=== PATIENT | female | born 1965 | race Caucasian/White ===

== ENCOUNTER 2019-04-24 13:10 | Emergency (ER) | payer OTHER ==
[2019-04-24 13:19] VITALS: BP 107/82
--- NOTE | 2019-04-24 13:37 | UC ---
General HPI - HPI Summary HPI Summary: Patient's 54-year-old female. Patient states she was taking her Xanax medication when she felt she choked on the pill. Patient states she started to Owens swallow. Patient states she has a burning sensation and felt like she was choking. Patient without drooling. No chest pain. No nausea vomiting. Patient has not tried to eat or drink anything. Patient states she got very scared to go herself right here. This occurred approximately 30 minutes prior to arrival. Patient's medications reviewed this visit. - History of Current Complaint Chief Complaint: UCGeneralIllness Stated Complaint: CAN'T SWALLOW Time Seen by Provider: 04/24/19 13:31 Hx Obtained From: Patient Onset/Duration: Sudden Onset Onset Severity: Mild Current Severity: None Pain Intensity: 0 - Allergy/Home Medications Allergies/Adverse Reactions: Allergies Allergy/AdvReac Type Severity Reaction Status Date / Time No Known Allergies Allergy Verified 04/24/19 13:15 Home Medications: Home Medications Cholecalciferol TAB* [Vitamin D TAB*] 1,000 unit PO DAILY 04/24/19 [History Confirmed 04/24/19] FLUoxetine CAP* [PROzac CAP*] 20 mg PO BID 04/24/19 [History Confirmed 04/24/19] clonazePAM TAB(*) [KlonoPIN TAB(*)] 1 mg PO BEDTIME PRN 04/24/19 [History Confirmed 04/24/19] PMH/Surg Hx/FS Hx/Imm Hx Previously Healthy: Yes Psychological History: Anxiety - Surgical History Surgical History: Yes Surgery Procedure, Year, and Place: myomectomy - Family History Known Family History: Positive: Non-Contributory - Social History Alcohol Use: None Substance Use Type: None Smoking Status (MU): Never Smoked Tobacco Review of Systems All Other Systems Reviewed And Are Negative: Yes - 1. Physical Exam - Summary Physical Exam Summary: Vital Signs Reviewed: Yes A+Ox3, anxious, speaking full easy sentences no increased WOB Eyes: Conjunctiva Clear, JAMARCUS. EOM intact and full ENT: Hearing grossly normal TM x 2 clear, mmoist, uvula midline, no exudate, no erythema Neck: Positive: Supple Respiratory: Positive: No respiratory distress, No accessory muscle use + CTA throughout no w/r, no coughing Cardiovascular: RRR nl s1, s2 no m/r CBT <2 sec abd soft + BS nt/nd no guarding, no distension Musculoskeletal Exam: SIMPSON x 4 without difficulty Strength Intact, ROM Intact Neurological: Positive: Alert, + sensation throughout Psychological: Positive: Normal Response To examiner Skin: Positive: no rash, no ecchymosis Triage Information Reviewed: Yes Vital Signs: Initial Vital Signs Temp 97.9 F 04/24/19 13:17 Pulse 97 04/24/19 13:17 Resp 20 04/24/19 13:17 BP 107/82 04/24/19 13:17 Pulse Ox 99 04/24/19 13:17 Diagnostics - Radiology No standard instances Radiology Interpretation Completed By: Radiologist - Patient Name: MARIBEL SINCLAIR Medical Record#: [id number] Ordering Physician: Charley Alexandre MD Acct.#: [id number] : 1965 Age: 53 Sex: F Location: [facility] Exam Date: 04/24/19 1347 ADM Status: REG ER Order Information: CHEST PA & LAT 2 VWS Accession Number: [id number] CPT: 90405 INDICATION: Choked on a pill, shortness of breath. COMPARISON: There are no prior studies available for comparison. TECHNIQUE: Dual-energy PA and lateral views of the chest were obtained. FINDINGS: The heart is within normal limits in size. Mediastinal and hilar contours appear within normal limits. The lungs are clear. No pleural effusion is seen. IMPRESSION: NO EVIDENCE FOR ACTIVE CARDIOPULMONARY DISEASE. <Electronically signed by John Khanna MD in OV> 04/24/19 135 Dictated By: John Khanna MD Dictated Date/ Time: 04/24/19 135 Transcribed Date/Time: 04/24/191357 Copy to: CC:Armando Pool ANP; Charley Alexandre MD Imaging - [facility] Imaging - [facility] Imaging [facility] [address] [address] ph ([phone]) ph ([phone]) ([phone]) This report is only to be considered final once signed by the Provider(s) as displayed in the "<Electronically Signed by >" field (s). Absence of a signature indicates the report is in a draft status and still needs to be finalized. In the event this document was created by someone other than the signing Provider, the individual initiating the document will be listed in the "Entered by:" or "Dictated by:" rios. 1 of 1 Re-Evaluation - Re-Evaluation First Eval Change: Improved - Review chest x-ray with patient. Patient eating and drinking without difficulty. No coughing. Reviewed vital signs. Patient states feeling better. Return precautions discussed. Patient in agreement. Course/Dx - Course Course Of Treatment: Patient presents to urgent care after choking on a pill. Patient states she felt like she started to cough and she was swallowing. Patient was concerned as the pill could be stuck. Patient states she was having difficulty swallowing. Patient states his improvement time. Patient with any drooling. No shortness of breath. No nausea vomiting. On exam vital signs are stable. Patient was initially very anxious but improved with conversation. Patient without any focal complaints. We'll do a chest x-ray. Discussed with patient lidocaine but states she didn't want her mouth to be numb. Patient drink some water. If she tolerates that we'll advance to soft. Patient states he remained comfortable with plan. Patient given reassurance. - Diagnoses Provider Diagnosis: Choking episode Discharge ED - Sign-Out/Discharge Documenting (check all that apply): Patient Departure All imaging exams completed and their final reports reviewed: Yes - Discharge Plan Condition: Stable Disposition: HOME Patient Education Materials: Esophageal Foreign Body (ED) Referrals: Armando Pool NP [Primary Care Provider] - Additional Instructions: You described a choking episode related to one of your pills. At today's visit , your vital signs are stable. Your chest x-ray is normal and not concerning. You've been able to eat and drink at urgent care without any difficulty. As discussed, you've may have a slight irritation to your food pipe from the pill. It is recommended the following: - Stay well hydrated. Drink plenty of nonalcoholic, non-caffeinated beverages. - You may find that cold fluids feel better again numbing effects to your area of irritation in her food pipe. - It is recommended that you do not eat hard or chewing food such as meat, chicken, nuts. It is recommended for the next 4 hours you eat soft foods such as aches, putting, milkshakes, Jell-O, scrambled eggs, mashed potatoes, similar foods. If you develop pain, difficulty swallowing, shortness of breath, or fevers is recommended you call 911 and go emergency department for further evaluation and treatment. If you continue to have symptoms next week is recommended to contact her primary care doctor for evaluation - Billing Disposition and Condition Condition: STABLE Disposition: Home
== END 2019-04-24 14:30 | disposition home or self-care (01) ==
LOC: UCCORT 13:10
DX: R09.89 Other specified symptoms and signs involving the circulatory and respiratory systems (principal); R06.02 Shortness of breath; F41.9 Anxiety disorder, unspecified
CPT/HCPCS: 71046; 99211; G0463